=== PATIENT | male | born 1990 | race African-American/Black ===

== ENCOUNTER 2020-11-05 09:38 | Emergency (ER) | payer SELFPAY ==
[2020-11-05 22:11] LABS: SARS-CoV-2 MS2 Positive; SARS-CoV-2 N Gene Negative; SARS-CoV-2 S Gene Negative; SARS-CoV-2 by NAA Not Detected (NotDetected); SARS-CoV-2 orf1ab Negative
== END 2020-11-05 10:15 | disposition home or self-care (01) ==
LOC: NAV ERS 09:38
DX: R05 Cough (principal); R06.02 Shortness of breath; Z20.828 Contact with and (suspected) exposure to other viral communicable diseases
CPT/HCPCS: 87635; 99283; U0003

== ENCOUNTER 2023-07-18 03:42 | Emergency (ER) | payer SELFPAY ==
[2023-07-18] MEDS ORDERED: Ibuprofen 200 MG TAB ONE (04:55)
== END 2023-07-18 05:10 | disposition home or self-care (01) ==
LOC: NAV ERS 03:42
DX: S43.102A Unspecified dislocation of left acromioclavicular joint, initial encounter (principal); W20.8XXA Other cause of strike by thrown, projected or falling object, initial encounter

== ENCOUNTER 2024-01-06 19:15 | Emergency (ER) | payer OTHER ==
[2024-01-06] MEDS ORDERED: predniSONE 20 MG TAB ONE (19:48)
[2024-01-06] MEDS ORDERED: Naproxen 500 MG TAB ONE (19:48)
[2024-01-07 18:34] LABS: SARS-CoV-2 N1 Negative; SARS-CoV-2 N2 Negative; SARS-CoV-2 RNAse P1 Positive; SARS-CoV-2 RNAse P2 Positive
== END 2024-01-06 20:07 | disposition home or self-care (01) ==
LOC: NAV ERS 19:15
DX: B34.9 Viral infection, unspecified (principal); R03.0 Elevated blood-pressure reading, without diagnosis of hypertension
CPT/HCPCS: 87635; 99283; J7512

== ENCOUNTER 2024-06-27 22:21 | Emergency (ER) | payer OTHER ==
[2024-06-27] MEDS ORDERED: Ketorolac Tromethamine 30 MG (1 mL) VIAL ONE (22:32)
[2024-06-27] MEDS ORDERED: Sodium Chloride 0.9% 1,000 ML ONE (22:32)
[2024-06-27 22:43] LABS: #Basophils 0.1 thou/uL (0.0-0.2); #Eosinphils 0.1 thou/uL (0.0-0.7); #Lymphocytes 4.1 thou/uL (1.20-3.40); #Monocytes 0.5 thou/uL (0.11-0.59); #Neutrophils 2.2 thou/uL (1.40-6.50); %Basophils 2.1 % (0.0-1.0); %Eosinophils 1.1 % (0.0-10.0); %Monocytes 6.7 % (0.0-10.0); %Neutrophils 31.1 % (42.0-75.0); Hematocrit 50.1 % (42.0-52.0); Hemoglobin 15.9 g/dL (14.0-18.0); Mean Corpuscular HGB CONC 31.7 g/dL (32.0-36.0); Mean Corpuscular Hemoglobin 29.5 pg (27.0-31.0); Mean Corpuscular Volume 92.8 fl (78.0-98.0); Platelet Count 167 10x3/uL (130-400); RBC Distribution Width 12.3 % (11.5-14.5)
[2024-06-27 22:53] LABS: Troponin I Less than 0.010 ng/mL (< 0.028)
[2024-06-27 22:54] LABS: ALT (SGPT) 130 U/L (8-55); AST (SGOT) 56 U/L (5-34); Albumin 4.3 g/dL (3.5-5.0); Alkaline Phosphatase 81 U/L (40-110); Anion Gap 16 mmol/L (10-20); BUN (Urea Nitrogen) 9 mg/dL (8.9-20.6); Bilirubin, Total 0.5 mg/dL (0.2-1.2); Calc. Creatinine Clearance 0 mL/min (70-130); Calcium 9.4 mg/dL (7.8-10.44); Carbon Dioxide 22 mmol/L (22-29); Chloride 104 mmol/L (98-107); Estimated GFR 84; Globulin 4.9 g/dL (2.4-3.5); Glucose 117 mg/dL (70-105); Lipase 24 U/L (8-78); Potassium 3.7 mmol/L (3.5-5.1); Protein, Total 9.2 g/dL (6.0-8.3); Sodium 138 mmol/L (136-145)
[2024-06-28 00:45] LABS: Troponin I Less than 0.010 ng/mL (< 0.028)
== END 2024-06-28 01:00 | disposition home or self-care (01) ==
LOC: NAV ERS 22:21
DX: R07.89 Other chest pain (principal); G40.409 Other generalized epilepsy and epileptic syndromes, not intractable, without status epilepticus
CPT/HCPCS: 36415; 71045; 80053; 83690; 84484; 85025; 93005; 96374; J1885; J7030